=== PATIENT | male | born 1965 | race Caucasian/White ===

== ENCOUNTER → 2018-09-18 18:07 | Outpatient (CLI) | payer MEDICARE, BC, SELFPAY ==
[2018-09-18 19:21] LABS: Basophils % 0.7 % (0.1-2.0); Eosinophils # 0.2 K/mm3 (0.0-0.4); Eosinophils % 4.1 % (0.1-12.0); Hematocrit 39.9 % (42.0-52.0); Hemoglobin 13.1 g/dL (14.1-18.0); Lymphocytes # 1.5 K/mm3 (0.7-4.5); Mean Corpuscular HGB Conc 32.9 g/dL (31.8-35.4); Mean Corpuscular Hemoglobin 29.2 pg (27.0-31.2); Mean Corpuscular Volume 88.9 fl (80-94); Mean Platelet Volume 7.6 fl (7.4-10.4); Monocytes # 0.3 K/mm3 (0.1-1.0); Monocytes % 6.6 % (1.7-9.3); Neutrophils # 2.9 K/mm3 (1.8-7.8); Neutrophils % 58.5 % (37.0-80.0); Platelet Count 225 K/mm3 (142-424); Red Blood Count 4.49 M/mm3 (4.60-6.20); Red Cell Distribution Width 13.1 % (11.5-17.5); White Blood Count 4.9 K/mm3 (4.8-10.8)
[2018-09-18 19:35] LABS: Alanine Aminotransferase 47 U/L (12-78); Albumin Level 3.9 gm/dL (3.4-5.0); Albumin/Globulin Ratio 1.3 (1.1-1.8); Alkaline Phosphatase 62 U/L (46-116); Anion Gap 14.1 mEq/L (5-15); Aspartate Amino Transferase 34 U/L (15-37); Bilirubin,Total 0.3 mg/dL (0.2-1.0); Blood Urea Nitrogen 13 mg/dL (7-18); Calcium 8.9 mg/dL (8.5-10.1); Carbon Dioxide 26 mmol/L (21.0-32.0); Chloride 102 mmol/L (98-107); Estimated Glomerular Filt Rate 88 ml/min (>60); GFR (African American) 106 ML/MIN (>60); Globulin 3.1 gm/dl (1.3-3.2); Glucose 98 mg/dL (74-106); Potassium 4.1 mmoL/L (3.5-5.1); Sodium 138 mmol/L (136-145); T4 (Thyroxine) 7.4 ug/dl (4.7-13.3); Thyroid Stimulating Hormone 4.85 uIU/ml (0.358-3.740)
[2018-09-18 19:39] LABS: C-Reactive Protein < 0.2 mg/L (0.0-0.9)
[2018-09-18 21:27] LABS: Erythrocyte Sedimentation Rate 1 mm/hr (0-20)
[2018-09-20 08:19] LABS: RA Latex Turbid. <10.0 IU/mL (0.0-13.9)
[2018-09-20 11:14] LABS: Anti-Centromere B Antibodies <0.2 AI (0.0-0.9); Anti-Jo-1 <0.2 AI (0.0-0.9); Anti-Smith Antibody <0.2 AI (0.0-0.9); Antichromatin Antibodies 0.3 AI (0.0-0.9); Antiscleroderma-70 Antibodies <0.2 AI (0.0-0.9); RNP Antibodies <0.2 AI (0.0-0.9); Sjogren's Anti-SS-A 0.3 AI (0.0-0.9); Sjogren's Anti-SS-B <0.2 AI (0.0-0.9)
[2018-09-21 06:18] LABS: Anti-Cyclic Citrullinated Pept 3 units (0-19); Anti-DNA (DS) Ab Qn 4 IU/mL (0-9)
== END ==
PROVIDERS: Visit Provider Nurse Practitioner Family
DX: M54.5 Low back pain (principal); Z76.89 Persons encountering health services in other specified circumstances; R53.83 Other fatigue
CPT/HCPCS: 80053; 84436; 84443; 85025; 85651; 86140; 86200; 86225; 86235; 86431

== ENCOUNTER → 2018-09-27 15:48 | Outpatient (CLI) | payer MEDICARE, BC, SELFPAY ==
--- NOTE | 2018-09-27 15:59 | XR_ITS ---
EXAM: XR lumbar spine min 4V HISTORY: Low back pain ITS.REASON: pain ORDERING PHYSICIAN: Yasemin Quesada APRN PATIENT AGE: 53 years COMPARISON: None FINDINGS: There is normal alignment. There is mild wedging at T12 which appears chronic. Multiple endplate hypertrophic changes are present. There is cortical irregularity of the superior endplate of L4 with degenerative disc disease at L3-L4. There are severe degenerative disc disease at L5-S1 with mild anterolisthesis of L5 on S1 of 1 cm with facet arthritic changes at that level as well. No acute fracture or dislocation is evident. IMPRESSION: Lumbar spondylosis with severe degenerative disc disease and facet arthritic change at L5-S1 with grade 1 spondylolisthesis of L5. Mild cortical irregularity superior endplate of L4 age indeterminate
[2018-09-27 19:07] LABS: Ferritin 181 ng/mL (8-388)
[2018-09-29 08:22] LABS: Iron 102 ug/dL (38-169); UIBC 146 ug/dL (111-343)
[2018-09-29 12:40] LABS: Iron Saturation 41 % (15-55)
== END ==
PROVIDERS: Visit Provider Nurse Practitioner Family
DX: D64.9 Anemia, unspecified (principal); R53.83 Other fatigue; M54.5 Low back pain; R79.0 Abnormal level of blood mineral; Z85.828 Personal history of other malignant neoplasm of skin
CPT/HCPCS: 36415; 72110; 82728; 83540; 83550

== ENCOUNTER → 2019-08-28 14:43 | Outpatient (CLI) | payer MEDICARE, BC, SELFPAY ==
--- NOTE | 2019-08-28 14:53 | XR_ITS ---
PROCEDURE: XR LUMBAR SPINE 2-3V CLINICAL INDICATION: LOW BACK PAIN COMPARISON: [id number] XR lumbar spine min 4V from 09/27/2018 FINDINGS: There is multilevel degenerative disc disease from T11-S1 similar to the previous exam. There is severe degenerative disc disease at L5-S1 with grade 2 spondylolisthesis of L5 on S1 12 mm not significantly changed. Facet arthritic changes are present at L5-S1.. There is a mild amount of retained colonic feces IMPRESSION: Multilevel lumbar spondylosis worse at the L5-S1 region as described above overall not significantly changed Dictated by: Rolando Patiño MD 08/28/2019 15:23 Electronically signed by Rolando Patiño MD in [place] 08/28/2019 15:23
--- NOTE | 2019-08-28 14:53 | XR_ITS ---
PROCEDURE: XR CHEST 2V CLINICAL HISTORY: H/O TOBACCO USE Chronic cough, current smoker COMPARISON: CXR CHEST(2 VIEWS-NOT PORTABLE) from 04/14/2013 CXR CHEST(2 VIEWS-NOT PORTABLE) from 05/25/2013 FINDINGS: The cardiomediastinal silhouette and pulmonary vascularity are within normal limits. The lungs are clear without infiltrates, suspicious nodules, or pleural effusions. No acute bony abnormalities. IMPRESSION: No acute findings. Dictated by: Rolando Patiño MD 08/28/2019 15:35 Electronically signed by Rolando Patiño MD in [place] 08/28/2019 15:35
== END ==
PROVIDERS: PCP Nurse Practitioner Family; Visit Provider Nurse Practitioner Family
DX: M54.5 Low back pain (principal); J44.9 Chronic obstructive pulmonary disease, unspecified; H91.03 Ototoxic hearing loss, bilateral
CPT/HCPCS: 71046; 72100

== ENCOUNTER → 2019-10-01 08:15 | Outpatient (POV) | payer MEDICARE, BC, SELFPAY ==
[2019-10-01 08:43] VITALS: BP 145/85; PULSE 85; RESP 18; TEMP 37.1; O2SAT 100; BMI 22.9
--- NOTE | 2019-10-01 09:08 | HMH.PMCON ---
Assessment and Plan (1) Facet arthritis of lumbar region Current visit: No Status: Chronic Category: Medical Code(s): M47.816 - Spondylosis without myelopathy or radiculopathy, lumbar region (2) Degenerative disc disease, lumbar Current visit: No Status: Chronic Category: Medical Code(s): M51.36 - Other intervertebral disc degeneration, lumbar region (3) Lumbar spondylosis Current visit: No Status: Chronic Category: Medical Code(s): M47.816 - Spondylosis without myelopathy or radiculopathy, lumbar region - Assessment and plan all Dx Assessment and Plan for all problems:: We will schedule the patient for an L4-L5 lumbar epidural steroid injection to see if this is beneficial for him. I discussed this in great detail with him and provided education for the patient. If this is not beneficial we will move forward with a an MRI. Patient's been instructed to call the office if he has any issues prior to his next appointment. We specifically discussed risk factors for Covid-19 including age, heart or lung disease, diabetes, immunosuppression and travel. We also discussed that NSAIDs may worsen Covid-19 infection symptoms and that they should not be used to treat Covid-19 symptoms. Patient was also informed that corticosteroids in any form oral or injectable will decrease immune response and may increase risk of Covid-[address] Pacheco has reviewed this patient's chart and this note and agrees with plan of care. Patient has been instructed to call the office if they have any issues prior to the next appointment. HPI - Data of Consult Consult date: 10/01/19 Requesting Physician: Alva Gonzalez APRN Primary Care Provider: Yasemin Quesada APRN - Consult Narrative Reason for consult: Back pain, leg pain History of present illness: Mr. Vieyra is a 54 year old male who presents today to discuss his low back and leg pain. Patient states he is had pain since he was a baby . Patient states that there was no trauma nor any thing that precipitated the pain it just was there since he was born. Patient rates his pain a 10 out of 10 today. Of note he is in no acute distress. Patient states that he had to take a ibuprofen today which is helpful however he has become immune to it. Patient does have an x-ray showing severe degenerative changes. He has not had an MRI. Patient and I discussed the potential epidural injection to potentially avoid an MRI. We will utilize an epidural as it a diagnostic procedure. Patient has had physical therapy in the past. He states it was not beneficial. CC: Alva Gonzalez APRN [facility] History I have reviewed the patient's past medical history: Yes Medical History: Reports:: Asthma, Cancer (MELANOMA OF R CHEST), Chronic Obstructive Pulmonary Disease (COPD) Denies:: Diabetes Mellitus Type 1, Diabetes Mellitus Type 2, MRSA *Have you ever received a pneumonia vaccine?: Yes *Have you received a flu vaccine this season?: Yes Other Surgeries: Yes: Cancer Surgery, Other Amputation: No Fractures: No - *Social History Smoking Status: Never smoker Alcohol Intake: never Alcohol Intake Frequency:: a few times a month Substance Use Type: denies use *Occupational Status:: unemployed Housing: house Household Members: other *Travel in the last 8 weeks: None Family Hx:: Diabetes Review of Systems - Review of Systems ROS General: no recent weight change, no fever, no sleep disturbances Respiratory: no cough, no shortness of air, no recurring pulmonary infections Cardiovascular/Peripheral Vascular: No chest pain, No palpitations, no edema, no shortness of breath. Gastrointestinal: no new onset incontinence, normal bowel movements reported Genitourinary: no new onset incontinence Musculoskeletal: Back pain, leg pain Psychiatric: normal mood/ affect Neurological: [denies new onset weakness in extremities], [denies new onset balance issues] Meds Home
== END ==
PROVIDERS: PCP Nurse Practitioner Family; Visit Provider Clinical Nurse Specialist Family Health
DX: M47.816 Spondylosis without myelopathy or radiculopathy, lumbar region (principal); M51.36 Other intervertebral disc degeneration, lumbar region
CPT/HCPCS: 99202

== ENCOUNTER → 2019-11-25 14:08 | Outpatient (CLI) | payer MEDICARE, BC, SELFPAY ==
--- NOTE | 2019-11-25 14:30 | CT_ITS ---
PROCEDURE: CT SINUS WO CON CLINICAL HISTORY: sinusitis COMPARISON: No exams were available for comparison TECHNIQUE: Axial images obtained with sagittal and coronal reformats. All CT scans at the facility use one or more dose reduction, viz: automated exposure control, ma/kV adjustment per patient size (including targeted exams where dose is matched to indication, i.e. head), or iterative reconstruction technique. FINDINGS: There is mild mucosal thickening of the nasal turbinates and ethmoidal sinuses. The nasal vomer is in a midline location. Ostiomeatal units are intact. Orbits and soft tissues are unremarkable. Mastoid air cells are well aerated. IMPRESSION: Minimal ethmoidal sinusitis and rhinitis Dictated by: Zoltan Peck 11/25/2019 17:09 Electronically signed by Zoltan Peck in [place] 11/25/2019 17:09
== END ==
PROVIDERS: PCP Nurse Practitioner Family; Visit Provider Otolaryngology
DX: H90.5 Unspecified sensorineural hearing loss (principal); J32.0 Chronic maxillary sinusitis
CPT/HCPCS: 70486

== ENCOUNTER → 2020-11-30 09:47 | Outpatient (CLI) | payer MEDICARE, SELFPAY ==
--- NOTE | 2020-11-30 09:58 | XR_ITS ---
PROCEDURE: XR LUMBAR SPINE MIN 4V CLINICAL INDICATION: LOW BACK PAIN COMPARISON: CR XR LUMBAR SPINE 2-3V from 08/28/2019 FINDINGS: There is degenerative disc disease at L5-S1 with 10 mm anterolisthesis of L5 with osteosclerosis of the endplates. This is not significantly changed from 08/28/2019. Mild degenerative disc disease T11-T12 and T12-L1. Small endplate osteophytes are present at T12-L5. no acute fracture or dislocation. No lytic or blastic change. IMPRESSION: Degenerative changes as described above overall not significantly changed Dictated by: Rolando Patiño MD 11/30/2020 12:35 Rolando Patiño MD in [place] 11/30/2020 12:35
== END ==
PROVIDERS: PCP Family Medicine Adult Medicine; Visit Provider Family Medicine Adult Medicine
DX: M54.5 Low back pain (principal)
CPT/HCPCS: 72110

== ENCOUNTER → 2023-06-01 12:06 | Outpatient (CLI) | payer MEDICARE, SELFPAY ==
--- NOTE | 2023-06-01 12:14 | XR_ITS ---
FINAL REPORT CLINICAL HISTORY: LT ARM PAIN FINDINGS: Left humerus Two views were obtained. There is no acute fracture or dislocation. The joint spaces appear normal. No soft tissue abnormality is identified. IMPRESSION: No acute process. Reviewed, Interpreted and Dictated by Micah Chavez MD Transcribed by Linda Ching Authenticated and [facility]
--- NOTE | 2023-06-01 12:14 | XR_ITS ---
FINAL REPORT CLINICAL HISTORY: LT ARM PAIN FINDINGS: Left shoulder Three views were obtained. There is no acute fracture or dislocation. There are mild hypertrophic changes of the AC joint. No soft tissue abnormality is identified. IMPRESSION: No acute process. Reviewed, Interpreted and Dictated by Micah Chavez MD Transcribed by Linda Ching Authenticated and [facility]
== END ==
LOC: RAD 12:09
PROVIDERS: PCP Nurse Practitioner Family; Visit Provider Nurse Practitioner Family
DX: M79.602 Pain in left arm (principal)
CPT/HCPCS: 73030; 73060

== ENCOUNTER 2023-07-16 18:45 | Emergency (ER) | payer MEDICARE, SELFPAY ==
[2023-07-16 18:45] VITALS: BP 151/100; PULSE 93; RESP 16; TEMP 36.6; O2SAT 99; BMI 30.1
--- NOTE | 2023-07-16 18:46 | XR_ITS ---
PROCEDURE INFORMATION: Exam: XR Right Hip Exam date and time: 07/16/2023 6:47 PM Age: 58 years old Clinical indication: Injury or trauma; Fall; Blunt trauma (contusions or hematomas); Right; Hip TECHNIQUE: Imaging protocol: Radiologic exam of the right hip. Views: 2 or 3 views hip with pelvis when performed. COMPARISON: CR XR LUMBAR SPINE MIN 4V 11/30/2020 10:05 AM FINDINGS: Bones/joints: Unremarkable. No acute fracture. Soft tissues: Unremarkable. IMPRESSION: No acute findings.
--- NOTE | 2023-07-16 18:46 | XR_ITS ---
PROCEDURE INFORMATION: Exam: XR Right Femur Exam date and time: 07/16/2023 6:50 PM Age: 58 years old Clinical indication: Injury or trauma; Fall; Blunt trauma; Thigh or upper leg; Right; Additional info: R hip pain TECHNIQUE: Imaging protocol: Radiologic exam of the right femur. Views: 2 views. COMPARISON: CR XR HIP RT 2-3V W/PELVIS 07/16/2023 6:47 PM FINDINGS: Bones/joints: Unremarkable. No acute fracture. Soft tissues: Unremarkable. IMPRESSION: No acute findings.
--- NOTE | 2023-07-16 18:50 | HMH.EDGENADL ---
Discharge Plan Disposition Patient Disposition: Home, Self-Care Chief Complaint: Fall Prescriptions Prescriptions: No Action fluticasone propionate 50 mcg/actuation spray,suspension 50 spray INTRANASAL DAILY loratadine 10 MG tablet 10 mg PO DAILY Activity Restrictions/Add. Instructions Additional Instructions/Restrictions: At this time it was felt you are safe to be discharged home. If new or worsening symptoms please do not hesitate to return the emergency department. If symptoms persist please follow-up with your family doctor as you are able. Clinical Impressions Clinical Impression: Fall, Acute pain of right hip Discharge ED Provider: Law Robbins General Adult HPI General Chief complaint: Fall Stated complaint: Fall on 07/14 Time Seen by Provider: 07/16/23 18:50 History of Present Illness HPI narrative: Patient is a 58-year-old male with no pertinent past medical history who presents emergency department for evaluation of ground-level fall. Patient had a mechanical fall tripping over a cord 2 days ago with resultant right hip pain. Denies hitting his head, loss of consciousness. Patient is not on blood thinners. He is complaining of right hip pain and stiffness with limited ability to bear weight secondary to that pain. Denies other traumatic complaints or other pain at this time. Related Data Home Medications Medication Instructions Recorded Confirmed fluticasone propionate 50 50 spray intranasal DAILY Allergy 10/10/19 12/24/19 mcg/actuation nasal symptoms spray,suspension loratadine 10 mg tablet 10 mg PO DAILY Allergy symptoms 12/24/19 12/24/19 Allergies Allergy/AdvReac Type Severity Reaction Status Date / Time Penicillins Allergy Verified 12/24/19 10:18 [facility] Disclaimer: The information contained in this section may have been updated after the patient was seen, as this information can be updated by other users. Social History Smoking Status: Current every day smoker alcohol intake: never substance use type: denies use current occupational status: other Travel in the last 8 weeks: None household members: spouse housing: house current occupational exposures/hazards: No ROS Obtained: Yes Systems reviewed as appropriate & no additional complaints except as documented Physical Exam General General appearance: alert and in no apparent distress Head Head exam: atraumatic and normocephalic Eye Eye exam: Present PERRL and EOMI ENT ENT exam: Present mucous membranes moist Neck Neck exam: Present normal inspection Chest Chest inspection: Present normal inspection and symmetric chest wall rise Respiratory Respiratory exam: Present normal lung sounds bilaterally; Absent respiratory distress Cardiovascular Cardiovascular exam: Present regular rate and normal rhythm Abdominal Exam Abdominal exam: Present soft; Absent tenderness Extremities Exam Extremities exam: Present normal inspection and other (Tenderness over the right lateral hip, no overlying skin changes, patient is able to flex with 5 out of 5 strength at the hip. Distally neurovascular intact right lower extremity. No tenderness over other extremities.) Neurological Exam Neurological exam: Present alert Psychiatric Psychiatric exam: Present normal affect Skin Skin exam: Present warm and dry Medical Decision Making [place] Inquiry Pt receiving controlled substance: No Vital Signs: 07/16/23 18:45 Temperature 97.8 F Temperature Source Oral Pulse Rate [Right] 93 H Respiratory Rate 16 Blood Pressure [Right Arm] 151/100 H Blood Pressure Mean [Right Arm] 117 Blood Pressure Position [Right Arm] Supine 02 Sat by Pulse Oximetry 99 Oxygen Delivery Method Room Air Orders (Tests/Meds): ED MEDICATIONS Discontinued Medications Generic Name Dose Route Start Last Admin Trade Name Freq PRN Reason Stop Dose Admin Acetaminophen 1,000 mg 07/16/23 18:48 07/16/23 19:07 Acetaminophen 500mg Tab PO 07/16/23 18:49 1,000 mg ONCE ONE Administration Methocarbamol 1,000 mg 07/16/23 18:48 07/16/23 19:06 Methocarbamol 500mg Tablet PO 07/16/23 18:49 1,000 mg ONCE ONE Administration ORDERS Category Date Time Status Femur XR right 2 views [XR femur RT 2V] Stat Exams 07/16/23 18:46 Completed Hip XR right minimum 2 views [XR hip RT 2-3V w/pelvis] Exams 07/16/23 18:46 Completed Stat Pelvis XR 1-2 views [XR pelvis 1-2V] Stat Exams 07/16/23 18:46 Taken Medical Decision Narrative: In summary patient is a 58-year-old male past medical history described above presents emergency department for evaluation of traumatic injury sustained in a ground-level fall. Patient is hemodynamically stable nontoxic-appearing upon arrival, afebrile. Differential diagnosis includes musculoskeletal strain, fracture, dislocation, among others. Workup will be limited to plain film of the right hip and femur. Initial interventions include Tylenol and Robaxin. CT imaging of the head was considered however given no loss of consciousness and no trauma on exam or per history will be deferred at this time. X-ray informally interpreted by me, no acute displaced fracture or dislocation. Formal read shows no acute pathology. On repeat evaluation patient underwent ambulatory trial at bedside and was successful with some antalgic gait however able to bear full weight on his extremity. Given this patient is appropriate for outpatient management at this time and was given return precautions. Critical Care Critical Care Time Critical Care Time: No
[2023-07-16] MEDS: METHOCARBAMOL 500MG TABLET 1000 MG PO (19:06)
[2023-07-16] MEDS: ACETAMINOPHEN 500MG TAB 1000 MG PO (19:07)
[2023-07-16 19:30] VITALS: BP 151/85; PULSE 80; O2SAT 96
--- NOTE | 2023-07-16 19:38 | PC.NURSE ---
patient given urinal
[2023-07-16 19:59] VITALS: BP 151/85; PULSE 80; RESP 14; TEMP 36.7; O2SAT 95
== END 2023-07-16 20:26 | disposition home or self-care (01) ==
PROVIDERS: Emergency Provider Emergency Medicine
DX: M25.551 Pain in right hip (principal); F17.200 Nicotine dependence, unspecified, uncomplicated; W01.0XXA Fall on same level from slipping, tripping and stumbling without subsequent striking against object, initial encounter
CPT/HCPCS: 72170; 73502; 73552; 99284

== ENCOUNTER 2023-09-08 11:00 | Outpatient (RCR) | payer MEDICARE, SELFPAY | END 2023-09-08 12:00 | disposition home or self-care (01) | LOC: PT 11:00 | PROVIDERS: Visit Provider Nurse Practitioner Family | DX: M25.551 Pain in right hip (principal) | CPT/HCPCS: 97010; 97014; 97110; 97163; G0283 ==

== ENCOUNTER 2025-02-04 06:27 | Day surgery (SDC) | payer MEDICARE, MEDICAID, SELFPAY ==
[2025-02-04 06:48] VITALS: BP 152/71; PULSE 73; RESP 18; TEMP 36.2; O2SAT 98; BMI 22.8
--- NOTE | 2025-02-04 06:51 | P.HP_ITS ---
HPI HPI HPI: XT 1-year-old gentleman seen in consultation from his primary care provider for evaluation regarding dysphagia and for screening colonoscopy. He is a poor historian but states that he has never had a colonoscopy. He describes difficulty swallowing and that things just get stuck sometimes . When describing his symptoms he points to his neck. [facility] Disclaimer: The information contained in this section may have been updated after the patient was seen, as this information can be updated by other users. Medical History (Updated 02/04/25 @ 06:54 by Wilver Ramirez MD) Emphysema/COPD Hyperlipidemia Family History (Updated 02/04/25 @ 06:53 by Christie Orozco RN) Colon cancer Brother Social History Smoking Status: Current every day smoker alcohol intake: never substance use type: denies use current occupational status: other Travel in the last 8 weeks?: None household members: spouse housing: house current occupational exposures/hazards: No Have you lived/traveled outside US in past 30 days?: No Contact w/someone who lives/traveled outside US past 30 days?: No Exposure to someone with infectious disease in past 14 days?: No Do you have a fever (greater than 100.4 F or 38 C)?: No Have you tested positive for COVID-19?: No Exposed to someone with COVID-19 in past 14 days?: No Do you have a sore throat?: No Do you have a cough?: No Do you have any weakness?: No Do you have any diarrhea?: No Are you experiencing any unusual bleeding?: No Do you have any muscle aches/pain?: No Do you have any abdominal pain?: No Are you experiencing loss of taste or smell?: No Other Medical History Have you received the Flu Vaccine for this season: Yes Have you received the Pneumonia Vaccine: No Review of Systems Review of Systems Review of systems:: pertinent systems reviewed and negative unless documented below *Gastrointestinal Gastrointestinal: Reports as per HPI Meds Home Medications and Allergies Home Medications ?Medication ?Instructions ?Recorded ?Confirmed ?Type fluticasone propionate 50 50 spray intranasal DAILY Al lergy 10/10/19 12/24/19 History mcg/actuation nasal symptoms spray,suspension loratadine 10 mg tablet 10 mg PO DAILY Allergy sympt oms 12/24/19 12/24/19 History [id number] 140 gram-sod sulfate 9 500 ml PO .COMPLEX colo nscopy #3 ea 06/12/24 Rx gram-NaCl 5.2gram-KCl-C oral pwdr packs (Plenvu) New Prescriptions to Start Prescriptions: Allergies Allergy/AdvReac Type Severity Reaction Status Date / Time Penicillins Allergy Verified 12/24/19 10:18 Exam Constitutional Constitutional: no acute distress *Routine HEENT Exam Head: Present normocephalic Eye: Present EOMI ENT: Present mucous membranes moist *Routine Neck Exam Neck: Present full ROM *Routine Respiratory Exam Respiratory: Absent respiratory distress *Routine Cardiovascular Exam Cardiovascular: Absent tachycardia *Routine Abdominal Exam Abdominal: Present soft *Routine Rectal Exam Rectal:: deferred *Routine Genitalia Exam Genitalia:: deferred *Routine Extremities Exam Extremities: Present full ROM *Routine Skin Exam Skin: Absent erythema *Routine Neurological Exam Neurological: Present alert Assessment and Plan *Assessment and plan (1) Dysphagia: Status: Acute Qualifiers: Dysphagia type: pharyngeal phase Qualified Code(s): R13.13 - Dysphagia, pharyngeal phase Category: Medical Code(s): R13.10 - Dysphagia, unspecified (2) Encounter for screening colonoscopy: Status: Acute Category: Medical Code(s): Z12.11 - Encounter for screening for malignant neoplasm of colon Plan Initially proceed with esophagogastroduodenoscopy/colonoscopy I have discussed the risks and benefits including, but not limited to: Bleeding Infection Damage to surrounding tissue Inherent risks of sedation The patient agrees to proceed.
--- NOTE | 2025-02-04 06:55 | HMH.SCOPE ---
Procedure: Date: 02/04/25 Patient Date of :: 1965 Procedure Performed:: Esophagogastroduodenoscopy with biopsy Colonoscopy (aborted) Indications:: Dysphagia Screening colonoscopy Performing Provider:: Wilver Ramirez MD Referring Provider:: . Sedation:: Monitored anesthesia care Procedure:: After informed consent was obtained the patient was taken to the endoscopy suite. Sedation ensued after the patient was transferred to the left lateral decubitus position. Pulse, blood pressure, and oxygen saturation were monitored throughout the procedure. The endoscope was advanced beyond the duodenal bulb. Retroflexion within the gastric lumen was accomplished. The gastroscope was carefully removed. Digital rectal exam revealed no significant abnormality. The colonoscope was placed in position. A significant volume of formed stool was noted within the rectal vault. The decision to forego further attempts at advancement of the colonoscope was made. The colonoscope was carefully removed and the patient was transferred to recovery in stable condition. Please see findings and specimens below for detail. Findings:: Patulous/tortuous esophagus consistent with dysmotility Gastroesophageal junction at 36 cm Focal inflammation at gastroesophageal junction Sliding hiatal hernia Mild streaking gastritis Exceedingly poor bowel preparation Colonoscopy aborted Specimens:: Antral biopsy Recommendations:: Follow-up pathology Likely benefit from barium swallow and possible modified barium swallow Consider evaluation by the gastroenterology service for possible chronic constipation Short-term repeat colonoscopy likely deferred to the gastroenterology service after evaluation for constipation Complications:: Colonoscopy aborted secondary to poor bowel preparation Estimated blood obtained (mL): 1 Colonoscopy Component Colonoscopy Component Was a colonoscopy performed during today's procedure?: Yes Recommended follow up colonoscopy of at least 10 years?: No If no, follow up colonoscopy recommended in ___ years?: (See above) Reason for not recommending >/= 10 yr follow-up interval?: (See above)
[2025-02-04 07:02] VITALS: BMI 22.8
[2025-02-04] MEDS: LACTATED RINGERS 1000ML 1,000 ML 50 ML IV (07:05)
[2025-02-04 07:09] LABS: POC Glucose,Bedside 94 gm/dL (70-110)
--- NOTE | 2025-02-04 07:23 | P.PNANES_ITS ---
[facility] Disclaimer: The information contained in this section may have been updated after the patient was seen, as this information can be updated by other users. Medical History (Updated 02/04/25 @ 06:54 by Wilver Ramirez MD) Emphysema/COPD Hyperlipidemia Family History (Updated 02/04/25 @ 06:53 by Christie Orozco RN) Brother Colon cancer Social History Smoking Status: Current every day smoker alcohol intake: never substance use type: denies use current occupational status: other Travel in the last 8 weeks?: None household members: spouse housing: house current occupational exposures/hazards: No Have you lived/traveled outside US in past 30 days?: No Contact w/someone who lives/traveled outside US past 30 days?: No Exposure to someone with infectious disease in past 14 days?: No Do you have a fever (greater than 100.4 F or 38 C)?: No Have you tested positive for COVID-19?: No Exposed to someone with COVID-19 in past 14 days?: No Do you have a sore throat?: No Do you have a cough?: No Do you have any weakness?: No Do you have any diarrhea?: No Are you experiencing any unusual bleeding?: No Do you have any muscle aches/pain?: No Do you have any abdominal pain?: No Are you experiencing loss of taste or smell?: No [facility] Anesthesia Checklist Patient Identification Patient Identification: Arm Band Structural Data Admitted From: Home Planned Operative Procedure/s: EGD/Colonoscopy Consent for Planned Operative Procedure(s) Verified: Yes Verified Documents: Surgical Consent and History and Physical NPO Status Verified Time NPO: 00:00 Additional verifications Anesthesia Reactions: No Airway Assessment Mallampati Score:: Class II C-Spine Mobility Assessed: Yes TMJ Mobility Assessed: Yes Dentition: Edentulous Neurological Assessment Level of Consciousness: Awake, Alert and Appropriate Anesthesia Plan Anesthesia Risk discussed: Yes Anesthesia Plan: Verified ASA Class: II Anesthesia Type: MAC
[2025-02-04 07:46] VITALS: BP 84/46; PULSE 62; RESP 16; TEMP 36.1; O2SAT 100
[2025-02-04 07:56] VITALS: BP 89/50; PULSE 61; RESP 16; TEMP 36.1; O2SAT 98
[2025-02-04 08:06] VITALS: BP 109/68; PULSE 79; RESP 18; TEMP 36.1; O2SAT 100
[2025-02-04 08:16] VITALS: BP 119/70; PULSE 67; RESP 18; TEMP 36.1; O2SAT 98
== END 2025-02-04 08:30 | disposition home or self-care (01) ==
PROVIDERS: PCP Nurse Practitioner Family; Visit Provider Surgery
PROC: 0DJ08ZZ Inspection of Upper Intestinal Tract, Via Natural or Artificial Opening Endoscopic (ICD-10-PCS; CPT 45378; principal; 2025-02-04 07:30)
DX: Z12.11 Encounter for screening for malignant neoplasm of colon (principal); K29.50 Unspecified chronic gastritis without bleeding; K44.9 Diaphragmatic hernia without obstruction or gangrene; K22.4 Dyskinesia of esophagus; J43.9 Emphysema, unspecified; E78.5 Hyperlipidemia, unspecified; F17.200 Nicotine dependence, unspecified, uncomplicated; Z88.0 Allergy status to penicillin
CPT/HCPCS: 43239; 45330; 82962; 88305; J2003; J2704; J7120

== ENCOUNTER 2025-02-24 10:07 | Outpatient (CLI) | payer MEDICARE, MEDICAID, SELFPAY ==
--- NOTE | 2025-02-24 10:08 | XR_ITS ---
FINAL REPORT CLINICAL HISTORY: right hand pain FINDINGS: RIGHT HAND Three views demonstrate no acute fracture or dislocation. The visualized joint spaces are normally aligned. There is multijoint degenerative disease, most pronounced at the first carpometacarpal joint. The soft tissues are unremarkable. IMPRESSION: No acute bony abnormality. Reviewed, Interpreted and Dictated by Ginny Dooley MD Transcribed by Sheryl Delgado Authenticated and . [facility]
== END 2025-02-24 23:59 | disposition home or self-care (01) ==
LOC: RAD 10:08
PROVIDERS: PCP Nurse Practitioner Family; Visit Provider Physician Assistant
DX: M18.11 Unilateral primary osteoarthritis of first carpometacarpal joint, right hand (principal)
CPT/HCPCS: 73130

== ENCOUNTER 2025-02-25 09:09 | Outpatient (CLI) | payer MEDICARE, MEDICAID, SELFPAY ==
--- NOTE | 2025-02-25 09:30 | FL_ITS ---
FINAL REPORT CLINICAL HISTORY: dysphagia ESOPHAGUS STRECHED X 2 WEEKS AGO BREAD GETS STUCK IN THROAT 21.46 MGY DAP: 254.05 0.51 FLUORO TIME FINDINGS: ESOPHAGRAM HISTORY: Aphasia. PROCEDURE: The patient ingested barium. Effervescent crystals were also administered. Spot and overhead films were obtained. 12 total images were performed. FINDINGS: The esophagus is normal. There is no hiatal hernia. There is no gastroesophageal reflux . Peristalsis is normal. A 13 mm barium tablet passed throughout the esophagus without delay. Fluoroscopy exposure time: 51 seconds Radiation exposure in reference to air kerma: 21.46 mGy IMPRESSION: Normal esophagram. Images reviewed, interpreted, and dictated by Dr. Ginny Dooley. Transcribed by Anson Seaman PA-C. Reviewed, Interpreted and Dictated by Ginny Dooley MD Transcribed by MCKENZIE Rodriguez Authenticated and [facility]
[2025-02-25] MEDS: BARIUM SULFATE (E-Z-HD 340GM);135ML BOTTLE 135 ML PO (09:39)
[2025-02-25] MEDS: E-Z-GASII EFFERVESCENT GRANULES;1PK 1 EACH PO (09:39)
[2025-02-25] MEDS: BARIUM SULFATE(LIQUID E-Z-PAQUE);355ML BOTTLE 355 ML PO (09:39)
== END 2025-02-25 23:59 | disposition home or self-care (01) ==
LOC: RAD 09:09
PROVIDERS: PCP Nurse Practitioner Family; Visit Provider Surgery
DX: R13.10 Dysphagia, unspecified (principal)
CPT/HCPCS: 74220

== ENCOUNTER 2025-04-01 10:35 | Outpatient (CLI) | payer MEDICARE, OTHER, SELFPAY ==
--- NOTE | 2025-04-01 11:00 | FL_ITS ---
FINAL REPORT CLINICAL HISTORY: Dyphagia/normal Barium swallow 03:55 FLUORO 18.56 mGy DAP 301.98 FINDINGS: MODIFIED BARIUM SWALLOW History: Dysphagia FINDINGS: Fluoroscopy was provided for the speech pathologist to evaluate the swallowing mechanism. The patient was given several different consistencies of barium while the swallow was visualized fluoroscopically. The report of the speech pathologist should be consulted prior to making dietary decisions. Fluoroscopy time: 3 minutes 55 seconds Radiation exposure in Reference air Kerma: 18.56 mGy Fluoro dose: 301.98 DAP in uGym2 IMPRESSION: Modified barium swallow under fluoroscopic guidance. Please see the report of the speech pathologist for Dietary recommendations. Films reviewed , interpreted and dictated by Dr. Chavez. Transcribed by Anson Seaman PA-C. Reviewed, Interpreted and Dictated by Micah Chavez MD Transcribed by MCKENZIE Rodriguez Authenticated and [facility][1]
[2025-04-01] MEDS: BARIUM SULFATE(LIQUID E-Z-PAQUE);355ML BOTTLE 355 ML PO (11:24)
--- NOTE | 2025-04-01 11:43 | HMH.SLMBS2 ---
Speech & Language Evaluation Speech/Lang Modified Barium Swallow Start: 04/01/25 11:30 Freq: once Status: Complete Protocol: Document 04/01/25 11:30 [email or web address] (Rec: 04/01/25 11:42 VIC [id number]) CORRECTIONAL COUNSELOR/CASE MANAGER Evaluation Information CORRECTIONAL COUNSELOR/CASE MANAGER Evaluation Information Date of Evaluation: 04/01/25 Time of Evaluation: 11:00 Evaluation Type Initial Certification Reason for Referral dysphagia per MD order Does Patient Qualify No for Service Qualify/Failure Based on clinical observations made through MBSS, Comment mastication/manipulation of bolus and swallowing are WFL given age and lack of dentition. No further skilled speech therapy services are warranted at this time. Pt would benefit from GI referral for complaints of globus sensation, hx of esophageal dilation, and complaints of frequent throat clearing/postnasal drip. MBS Recommendations Diet Dietary Mechanical Soft,Ground Meats,Chopped Meats,Thin Liquids Recommendations SL Swallow Alt bite w/sip thru meal,Standard Aspiration Prec.,Eat Guidelines at slow rate,Reflux precautions Swallow Guide-Place on Either side of Mouth Food Treatment/Strategies Strategy/Precaution Sitting Upright (90 deg),Chin Tuck,Double Swallow,No Recommended Straw,Small Bites and Sips,Alternate Liquids/Solids Referral/Other Recommended GI Consult Referrals CORRECTIONAL COUNSELOR/CASE MANAGER Patient History Section CORRECTIONAL COUNSELOR/CASE MANAGER Patient History Primary Medical Pt is a pleasant 60 year old male presenting for MBSS History following reports of globus sensation/things getting stuck in his throat. He was a poor historian but provided as much information as he could. States no recurrent upper respiratory infections, unexplained weight loss, or coughing/choking episodes. Provided CORRECTIONAL COUNSELOR/CASE MANAGER with two differing answers pertaining to GERD/reflux. He does not wear dentures, but eats what he wants at home regardless avoiding no textures/consistencies. Does Patient Torts Law Professor Coughing or Choking Episodes? Does Patient Avoid No Certain Food Textures/ Consistencies? Does Patient Utilize No Compensatory Strategies During Meals? Has Patient No Experienced Significant Weight Loss? Does Pt have Hx of No Recurrent Pneumonias or Respiratory Infections? Has Patient Noticed No Change in Vocal Quality? CORRECTIONAL COUNSELOR/CASE MANAGER Interview/Questionnaires Patient Interview and Questionnaires Were Any of the Reflux Severity Index (RSI),MD Carlos Dysphagia Questionnaires Inventory (MDADI),PILL-5 Assessment,Eating Assessment Presented? Tool (EAT-10) Questionnaires MDADI showed no concerns of swallowing affecting QOL. Comment EAT-10 reports difficulty with meat only, however, pt does not wear dentures and is edentulous. RSI reports high concern for globus sensation, post- nasal drip with excessive throat clearing, and heartburn/indigestion. PILL5 shows no concerns. Mod Barium Swallow Study Patient Orientation Patient Orientation Person,Place,Time,Situation Oral Expression Mild Impairment Ability Ability to Follow Good Directions Is Patient able to Yes Perform Volitional Throat Clear? Is Patient able to Yes Perform Volitional Cough? Is Patient able to Yes Manage Secretions Independently? Mod Barium Swallow Set Up Radiologist Carlos Babin Patient Presentation Awake,Alert,Appropriate,Follows Commands : Bolus Consistencies Thin Liquids,Pudding,Puree,Mechanical Soft,Regular,Pill Trialed: (Barium Tablet) MBSS Observations Consistency & Strategy Trial Regular Penetration/ 3 Aspiration Scale PAS Amount Trace Pharyngeal Residual 10-49% Regular Half Bolus Penetration/ 3 Aspiration Scale PAS Amount Trace Pharyngeal Residual 10-49% Mechanical Soft Penetration/ 3 Aspiration Scale PAS Amount Trace Pharyngeal Residual 10-49% Mechanical Soft Half Bolus Penetration/ 2 Aspiration Scale PAS Amount Trace Pharyngeal Residual 10-49% Puree Full Spoon Penetration/ 1 Aspiration Scale PAS Amount Neither Pharyngeal Residual 0-9% Puree Half Spoon Penetration/ 1 Aspiration Scale PAS Amount Neither Pharyngeal Residual 0-9% Pudding Full Spoon Penetration/ 1 Aspiration Scale PAS Amount Neither Pharyngeal Residual 0-9% Pudding Half Spoon Penetration/ 1,2 Aspiration Scale PAS Amount Neither Pharyngeal Residual 0-9% Thin Subsequent Sips from Straw Penetration/ 3 Aspiration Scale PAS Amount Trace Pharyngeal Residual 0-9% Thin Straw Sip Penetration/ 2 Aspiration Scale PAS Amount Trace Pharyngeal Residual 0-9% Thin Subsequent Sips from Cup Penetration/ 2 Aspiration Scale PAS Amount Trace Pharyngeal Residual 0-9% Thin Open Cup Sip Penetration/ 1 Aspiration Scale PAS Amount Neither Pharyngeal Residual 0-9% Mod Barium Swallow Impressions Oral Phase Summary & Impressions Oral Phase: Mild Impairment Impression Oral Phase: Labial No Impairment (WFL) Closure Oral Phase: Bolus Minimal Impairment Formation Pooling L/ R Oral Phase: Bolus Minimal Impairment Formation Under Tongue Oral Phase: Bolus Minimal Impairment Formation Scattered Loss Oral Phase: Mild Impairment Mastication Rotary Chew Oral Phase: Mild Impairment Mastication Munching Oral Phase: Mild Impairment Mastication Lateralization Oral Phase: Lingual Minimal Impairment Movement Oral Phase: Residue Mild Impairment Clearing Oral Phase: Other No dentition Observations Oral Phase: Summary Mild impairment of oral preparatory and oral transit phases of the swallow 2' increased mastication time and poor bolus withholding/control. Pharyngeal Phase Summary & Impressions Pharyngeal Phase: Mild Impairment Impression Pharyngeal Phase: A/ Moderate Impairment P Lingual Propulsion Spills Pharyngeal Phase: Moderate Impairment Swallow Response Delay Pharyngeal Phase: Mild Impairment Base of Tongue Pharyngeal Phase: Mild Impairment Epiglottic Coverage Pharyngeal Phase: Mild Impairment Laryngeal Elevation Pharyngeal Phase: Moderate Impairment Vallecular Retention Clearing Pharyngeal Phase: Mild Impairment Pharyngeal Wall Residue Clearing Pharyngeal Phase: Mild Impairment Piriform Sinus Retention Pharyngeal Phase: Mild to moderate impairment of swallow as pt Summary demonstrated delayed swallow resulting in AP spills into vallecular space across all consistencies. He is able to inconsistently clear residuals collected in space and requires double swallow and/or chin tuck to clear solid residuals from valleculae. Limited BOT retraction observed. Pt would benefit from ground meat textures with sauces/gravys with standard precautions, as well as GI referral based on findings. Aspiration Aspiration? No CORRECTIONAL COUNSELOR/CASE MANAGER MBSS Goals MBS Alf Goals Patient will utilize Double Swallow,Chin Tuck,No Straws,Alternate Bites & compensatory Sips,Sitting Upright,Small Bites & Sips strategies with PO intake in order to meet nutrition and hydration needs for daily meals without overt signs/symptoms of aspiration. The patient will Mechanical Soft,Ground Meats,Thin Liquids tolerate the least restrictive diet with a safe/ efficient swallow to maintain adequate nutrition and hydration. MBS Short Term Goals Dietary Mechanical Soft,Ground Meats Recommendations: MBS Short Term Goals Compensatory Double Swallow,Chin Tuck,No Straws,Alternate Bites & Strategies: MBS Sips,Sitting Upright,Small Bites & Sips Short Term Goals Education Instructions Discussed MBSS results, diet recommendations, provided aspiration precautions/compensatory strategies and GI referral with pt, as well as provided educational handouts all of which he expressed understanding. Patient/Caregiver Able to recall/restate Able to Recall Information Reinforcement needed No PHYSICIAN CERTIFICATION: I certify the specified therapy services for Woodrow Vieyra are required, authorized, and reviewed every 30 days.
== END 2025-04-01 23:59 | disposition home or self-care (01) ==
LOC: RAD 10:36
PROVIDERS: PCP Nurse Practitioner Family; Visit Provider Surgery
DX: R13.10 Dysphagia, unspecified (principal)
CPT/HCPCS: 74230; 92611